=== PATIENT | male | born 1935 | race Two or more races ===

== ENCOUNTER → 2016-12-11 | Outpatient (REF) | payer MEDICARE ==
[2016-12-11 18:02] LABS: FREE T4 1.53 NG/DL (0.76-1.46)
[2016-12-13 14:16] LABS: SJOGREN'S ANTI SS-A 7.5 AI (0.0-0.9); SJOGREN'S ANTI SS-B <0.2 AI (0.0-0.9)
== END ==
LOC: M LABNEURO 17:18
PROVIDERS: ATTEND Psychiatry & Neurology Neurology
DX: G47.00 Insomnia, unspecified (principal); G25.0 Essential tremor

== ENCOUNTER 2020-01-13 14:30 | Outpatient (RCR) | payer MEDICARE | END 2020-01-22 | LOC: M ST 14:30 | PROVIDERS: ATTEND Internal Medicine Cardiovascular Disease | DX: I63.9 Cerebral infarction, unspecified (principal) ==

== ENCOUNTER 2020-02-16 14:30 | Outpatient (RCR) | payer MEDICARE | END 2020-02-22 | LOC: M ST 14:30 | PROVIDERS: ATTEND Internal Medicine Cardiovascular Disease | DX: I69.320 Aphasia following cerebral infarction (principal) ==

== ENCOUNTER 2020-02-25 14:30 | Outpatient (RCR) | payer MEDICARE | END 2020-03-23 | LOC: M ST 14:30 | PROVIDERS: ATTEND Internal Medicine Cardiovascular Disease | DX: I69.320 Aphasia following cerebral infarction (principal) ==